=== PATIENT | male | born 1970 | race Caucasian/White ===

== ENCOUNTER 2017-09-10 00:02 | Emergency (ER) | payer OTHER ==
[2017-09-10 01:06] VITALS: BP 143/96; PULSE 97; TEMP 98.3; BMI 33.9
[2017-09-10] MEDS ORDERED: DIPHTH,PERTUSS(ACELL),TET 0.5 ML DISP.SYRIN IM ONE (01:50)
--- NOTE | 2017-09-10 01:59 | PDOC ---
History of Present Illness - General Chief Complaint: Injury Stated Complaint: LACERATION/INTOX Time Seen by Provider: 09/10/17 01:40 History Source: Patient Exam Limitations: Intoxication - History of Present Illness Initial Comments: 09/10/17 01:52 This is a 47-year-old male without significant past medical history who was brought into the emergency department by EMS for laceration to the back of his head. Patient reports going up with his earlier tonight and having multiple drinks and does not remember how he got home or striking his head. Patient is unsure who called EMS for the patient. PMD: Denies PMH: Denies PSH: Denies Tobacco: Denies EtOH: Daily-does not endorse amount Illicits: Denies Occupation: Refuses to answer Past History - Past Medical History Allergies/Adverse Reactions: Allergies Allergy/AdvReac Type Severity Reaction Status Date / Time No Known Allergies Allergy Verified 09/10/17 01:07 Home Medications: Ambulatory Orders NK [No Known Home Medication] 09/10/17 - Suicide/Smoking/Psychosocial Hx Smoking History: Never smoked Have you smoked in the past 12 months: No Information on smoking cessation initiated: No Hx Alcohol Use: No Drug/Substance Use Hx: No Review of Systems - Review of Systems Able to Perform ROS?: Yes (intoxicated) Is the patient limited Arabic proficient: No Constitutional: No: Symptoms Reported HEENTM: No: Symptoms Reported Respiratory: No: Symptoms reported Cardiac (ROS): No: Symptoms Reported ABD/GI: No: Symptoms Reported : No: Symptoms Reported Musculoskeletal: No: Symptoms Reported Integumentary: No: Symptoms Reported Neurological: No: Symptoms reported *Physical Exam - Vital Signs Last Vital Signs Temp Pulse Resp BP Pulse Ox 98.3 F 97 H 18 143/96 100 09/10/17 01:03 09/10/17 01:03 09/10/17 01:03 09/10/17 01:03 09/10/17 01:03 - Physical Exam General Appearance: Yes: Appropriately Dressed, Alcohol on Breath HEENT: positive: Other (lateral nystagmus. abrasion to occiput.) Neck: positive: Trachea midline, Supple Respiratory/Chest: positive: Lungs Clear Cardiovascular: positive: Regular Rhythm, Regular Rate Gastrointestinal/Abdominal: positive: Normal Bowel Sounds, Soft. negative: Tender Musculoskeletal: positive: Normal Inspection. negative: CVA Tenderness Extremity: positive: Normal Capillary Refill, Normal Inspection Integumentary: positive: Normal Color, Dry, Warm Neurologic: positive: Fully Oriented, Alert, Motor Strength 5/5, Finger to Nose. negative: Facial Droop, Numbness ED Treatment Course - RADIOLOGY Radiology Studies Ordered: Category Date Time Status CERVICAL SPINE CT W/O CONTR [CT] Stat CT Scan 09/10/17 01:[address] WITHOUT CONTRAST [CT] Stat CT Scan 09/10/17 01:50 Ordered Medical Decision Making - Medical Decision Making 09/10/17 01:55 A/P: This is a 47-year-old male without significant past medical history who was brought into the emergency department by EMS for laceration to the back of his head. Patient reports going up with his earlier tonight and having multiple drinks and does not remember how he got home or striking his head. Patient is unsure who called EMS for the patient. Patient with superficial abrasion to occipit. Pupils equally round reactive to light and accommodation. Lateral nystagmus noted. Able to perform [id number] exercises correctly. TMs clear appropriate light reflex. No blood noted in external auditory canals. Patient with nasal deformity which she states is old. No dry blood in naris. No septal hematoma noted. No tenderness to palpation over cervical spine. Respirations even and unlabored. Lungs clear to auscultation bilaterally. S1 and S2 present. No murmur, rub or gallop noted. Abdomen soft nontender nondistended. Normoactive bowel sounds. DDx: Acute alcohol intoxication. Abrasion to occipit. ICH. I'll patient currently denies any complaints, I will perform a CAT scan of head and neck to rule out any fractures or intracranial pathology. Patient is unreliable given his current acute alcohol intoxication. I will give the patient Boostrix IM as he is unsure of when his last tetanus shot was. 09/10/17 03:13 CT of C-spine as read by Dr. Love: There is no fracture, subluxation, prevertebral soft tissue swelling. For mild degenerative changes. The lung apices are clear. Impression: No fracture. CT of the head as read by Dr. Love: The ventricular system is midline and nondilated. This all pattern is normal for the patient's age. There is no bleed , mass, extra-axial fluid collection or mass effect. Comminuted nasal bridge fracture is noted. No skull fracture or skull lesion is identified. Visualized paranasal sinuses and mastoid air cells are clear. Impression: Comminuted nasal bridge fracture. No intracranial pathology. Findings of the CAT scan have been discussed with the patient. Patient understands that he has comminuted nasal fracture. he states it is old but he will follow up with ENT. I will give her referral to Dr. Cardenas for follow-up. Patient has arranged a taxi to take him home. *DC/Admit/Observation/Transfer Diagnosis at time of Disposition: Nasal fracture Qualifiers: Encounter type: initial encounter Fracture type: closed Qualified Code(s): S02.2XXA - Fracture of nasal bones, initial encounter for closed fracture Alcohol intoxication Qualifiers: Complication of substance-induced condition: uncomplicated Qualified Code(s): F10.920 - Alcohol use, unspecified with intoxication, uncomplicated Abrasion head Qualifiers: Encounter type: initial encounter Qualified Code(s): S00.91XA - Abrasion of unspecified part of head, initial encounter - Discharge Dispostion Disposition: HOME Condition at time of disposition: Stable Admit: No - Referrals Referrals: Wilfredo Cardenas MD [Staff Physician] - - Patient Instructions Additional Instructions: Avoid alcohol. You've been given a referral to Dr. Cardenas who is an ear nose and throat doctor. He can call him for an appointment to follow-up for the nasal fracture. Keep well-hydrated. Take Tylenol or Motrin for pain. Follow manufacturers instructions for appropriate dosage. Return to emergency department for dizziness, nausea, vomiting, headaches, blurry vision, loss of consciousness, or any other concerns. Thank you very much for choosing us to provide your emergent healthcare needs. - Post Discharge Activity Forms/Work/School Notes: Back to Work
== END 2017-09-10 03:23 | disposition home or self-care (01) ==
LOC: EDBD → JER 00:02
PROC: 3E0234Z Introduction of Serum, Toxoid and Vaccine into Muscle, Percutaneous Approach (ICD-10-PCS; principal; 2017-09-10)
DX: S02.2XXA Fracture of nasal bones, initial encounter for closed fracture (principal); S00.01XA Abrasion of scalp, initial encounter; F10.920 Alcohol use, unspecified with intoxication, uncomplicated; W17.89XA Other fall from one level to another, initial encounter; Y93.89 Activity, other specified; Y92.018 Other place in single-family (private) house as the place of occurrence of the external cause
CPT/HCPCS: 70450-TC; 72125-TC; 90715; 99282-25